=== PATIENT | female | born 1940 | race Caucasian/White ===

== ENCOUNTER 2016-12-14 16:48 | Inpatient (IN) | payer MEDICARE, MEDICAID ==
[~2016-12-14] VITALS: Ht 152.4 cm; Wt 70.8 kg
--- NOTE | ~2016-12-14 | EKG ---
[place], [place] ELECTROCARDIOGRAM REPORT NAME: SILVERIO WHEELER UNIT #: [id number] ROOM: 528 DOCTOR: JOVAN JULIAN MD BIRTHDATE: [birth year] DOS: 12/14/2016 TIME: 1655 hours. FINDINGS: 1. Normal sinus rhythm. 2. Right bundle-branch block. 3. Abnormal electrocardiogram. JOVAN JULIAN MD CM:EKGRPT:ELECTROCARDIOGRAM REPORT [id number] JOVAN JULIAN MD
--- NOTE | ~2016-12-14 | CON ---
[place], [place] REPORT OF CONSULTATION NAME[id number] UNIT #: [id number] ROOM: 528 DOCTOR: ALINA MARTINEZ MD, FACC BIRTHDATE: [birth year] DOS: CARDIOLOGY CONSULTATION IMPRESSION: Syncope, shock. Evaluating for any METAL CUTTER or cardiovascular abnormality. An EEG is pending and no other associated symptoms. A similar episode happened several years ago apparently. No repeat episodes happened since it happened. Came to the Emergency Room and a carotid duplex was done and less than 50% stenosis on the both internal carotid arteries, not critical. The patient came to the Emergency Room. REVIEW OF SYSTEMS: HEENT: Unremarkable CARDIOVASCULAR: Unremarkable CARDIOPULMONARY: Unremarkable GASTROINTESTINAL: Unremarkable NEUROLOGICAL: Unremarkable. EEG is pending. Carotid duplex was less than 50% stenosis, probably. PHYSICAL EXAMINATION: SKIN: Warm, not diaphoretic. VITAL SIGNS: Stable. NECK: Supple. LUNGS: No rales heard. HEART: S1, S2. No gallops. ABDOMEN: Soft. Color is good. EXTREMITIES: No cyanosis. NEUROLOGIC: No focal neurological deficit noted. A CT scan of the head done on admission, small vessel changes with volume loss, otherwise no acute changes noted. Chest x-ray was unremarkable. No acute changes. DIAGNOSIS: Syncope. Workup is in progress and they may for his EEG. Thank you very much for asking me to see this patient. I will review the ____. [place], [place] REPORT OF CONSULTATION NAME: [facility] WHEEL[id number] UNIT #: [id number] ROOM: 528 DOCTOR: ALINA MARTINEZ MD, FACC BIRTHDATE: [birth year] ALINA MARTINEZ MD CM:CONSTR:REPORT OF CONSULTATION 0942 12/16/16 0203 interface
[2016-12-14 16:53] VITALS: BP 125/72
[2016-12-14 17:22] LABS: BASO % 0.4 % (0.0-1.0); EOS # 0.1 10*3/uL (0.0-0.4); EOS % 2.4 % (1.0-4.0); HEMATOCRIT 40.6 % (37.0-47.0); HEMOGLOBIN 13.8 g/dl (12.0-16.0); LYMPH # 1.7 10*3/uL (1.3-4.4); MEAN CELL VOLUME 86.9 fl (81.0-99.0); MEAN CORPUSCULAR HGB 29.6 pg (27.0-31.0); MEAN PLATELET VOLUME 12.5 fl (9.6-12.3); MONO # 0.5 10*3/uL (0.1-1.0); MONO % 9.5 % (3.0-9.0); NEUT # 2.6 10*3/uL (2.3-7.9); NEUT % 53.5 % (47.0-73.0); PLATELET COUNT AUTOMATED 205 10*3/uL (130-400); RED BLOOD COUNT 4.67 10*6/uL (4.10-5.10); RED CELL DISTRI WIDTH 12.6 % (0-14.5); WHITE BLOOD COUNT 4.9 10*3/uL (4.8-10.8)
[2016-12-14 17:31] LABS: PROTHROMBIN TIME 10.5 SECONDS (9.0-12.4)
[2016-12-14 17:33] VITALS: BP 130/77
[2016-12-14 17:41] LABS: ALBUMIN 3.6 gm/dl (3.1-4.5); ALKALINE PHOSPHATASE 79 U/L (45-117); BILIRUBIN, TOTAL 0.4 mg/dl (0.2-1.0); BUN 19 mg/dl (7-24); CARBON DIOXIDE 28 mmol/L (21-32); CHLORIDE 106 mmol/L (98-107); CPK 123 U/L (26-192); EST GLOM FILT AFRICAN AMERICAN > 60 ml/min; GLUCOSE 107 mg/dL (65-99); POTASSIUM 4.1 mmol/L (3.5-5.1); SGOT/AST 20 IU/L (3-35); SGPT/ALT 22 U/L (12-78); SODIUM 144 mmol/L (136-145); TOTAL PROTEIN 6.8 gm/dL (6.4-8.2)
[2016-12-14 17:43] LABS: CKMB 1.3 ng/ml (0.5-3.6)
[2016-12-14 17:45] LABS: TROPONIN I < 0.015 ng/ml (<0.045)
[2016-12-14 19:15] LABS: BILIRUBIN NEGATIVE (NEGATIVE); BLOOD NEGATIVE (NEGATIVE); CLARITY SL CLOUDY (CLEAR); COLOR YELLOW (YELLOW); GLUCOSE NEGATIVE (NEGATIVE); KETONE TRACE (NEGATIVE); LEUKO ESTERASE TRACE (NEGATIVE); NITRITE NEGATIVE (NEGATIVE); PH 6.5 (5.0-9.0); PROTEIN TRACE (NEGATIVE); UROBILINOGEN 0.2 E.U./dl (0.2-1.0)
[2016-12-14 19:28] LABS: BACTERIA 4+; URINE REFLEX COMMENT YES (NO)
[2016-12-14 20:14] VITALS: BP 133/69
[2016-12-14 20:59] VITALS: BP 133/79
[2016-12-14] MEDS ORDERED: NITROSTAT0.4 MG SL (23:42)
[2016-12-14] MEDS ORDERED: LOPRESSOR50 M1 PO (23:43)
[2016-12-14] MEDS ORDERED: OMEPRAZOLE D/R20 MG PO (23:44)
[2016-12-14] MEDS ORDERED: PLAVIX75 M1 PO (23:45)
[2016-12-14] MEDS ORDERED: Imdur SA60 MG PO (23:46)
[2016-12-14] MEDS ORDERED: ZOCOR40 MG PO (23:48)
[2016-12-14] MEDS ORDERED: NIACIN500 M4 PO (23:49)
[2016-12-15] VITALS: BP 134/88
[2016-12-15 00:54] LABS: CKMB 2.5 ng/ml (0.5-3.6)
[2016-12-15 00:55] LABS: CPK 170 U/L (26-192); TROPONIN I < 0.015 ng/ml (<0.045)
[2016-12-15 06:38] LABS: BASO % 0.4 % (0.0-1.0); EOS # 0.1 10*3/uL (0.0-0.4); EOS % 1.3 % (1.0-4.0); HEMATOCRIT 38.3 % (37.0-47.0); LYMPH # 1.3 10*3/uL (1.3-4.4); LYMPH % 27.7 % (27.0-41.0); MEAN CELL VOLUME 87.2 fl (81.0-99.0); MEAN CORPUSCULAR HGB 29.6 pg (27.0-31.0); MEAN CORPUSCULAR HGB CONC 33.9 g/dl (33.0-37.0); MEAN PLATELET VOLUME 12.1 fl (9.6-12.3); MONO # 0.5 10*3/uL (0.1-1.0); MONO % 10.5 % (3.0-9.0); NEUT # 2.7 10*3/uL (2.3-7.9); NEUT % 60.1 % (47.0-73.0); PLATELET COUNT AUTOMATED 204 10*3/uL (130-400); RED BLOOD COUNT 4.39 10*6/uL (4.10-5.10); RED CELL DISTRI WIDTH 12.4 % (0-14.5); WHITE BLOOD COUNT 4.6 10*3/uL (4.8-10.8)
[2016-12-15 06:47] LABS: BUN 16 mg/dl (7-24); CARBON DIOXIDE 28 mmol/L (21-32); CHLORIDE 109 mmol/L (98-107); EST GLOM FILT AFRICAN AMERICAN > 60 ml/min; GLUCOSE 94 mg/dL (65-99); SODIUM 144 mmol/L (136-145)
[2016-12-15 06:50] LABS: CPK 146 U/L (26-192)
[2016-12-15 06:52] LABS: TROPONIN I < 0.015 ng/ml (<0.045)
[2016-12-15 07:05] LABS: PROTHROMBIN TIME 10.7 SECONDS (9.0-12.4)
[2016-12-15 07:28] LABS: HEMOGLOBIN A1c 5.9 % (4.8-5.6)
[2016-12-15 08:00] VITALS: BP 128/68
[2016-12-15 08:36] LABS: FOLIC ACID 16.38 ng/mL (>5.38)
[2016-12-15 12:00] VITALS: BP 140/80
[2016-12-15 16:00] VITALS: BP 160/90
[2016-12-15 20:00] VITALS: BP 157/86
[2016-12-16] VITALS: BP 145/83
[2016-12-16 08:00] VITALS: BP 102/46; BP 130/74; BP 1630/74
[2016-12-16 12:00] VITALS: BP 146/68
[2016-12-16 16:00] VITALS: BP 152/80
[2016-12-16 20:00] VITALS: BP 168/80
[2016-12-17] VITALS: BP 135/61
[2016-12-17 08:00] VITALS: BP 140/72
[2016-12-17] MEDS ORDERED: METOPROLOL TART50 M1 PO (14:45)
== END 2016-12-17 16:50 | disposition home or self-care (01) | DRG 100 ==
LOC: ED 16:48 → 5E 19:23 → EDHOLD 19:23 → 5E 21:22
PROVIDERS: Internal Medicine; Registered Nurse
DX: R56.9 Unspecified convulsions (principal); N17.0 Acute kidney failure with tubular necrosis; R55 Syncope and collapse; I25.10 Atherosclerotic heart disease of native coronary artery without angina pectoris; I50.9 Heart failure, unspecified; I11.0 Hypertensive heart disease with heart failure; K21.9 Gastro-esophageal reflux disease without esophagitis; E78.5 Hyperlipidemia, unspecified; R00.1 Bradycardia, unspecified; R11.2 Nausea with vomiting, unspecified; E86.0 Dehydration; R51 Headache; R42 Dizziness and giddiness; R82.71 Bacteriuria; Z90.710 Acquired absence of both cervix and uterus; Z95.5 Presence of coronary angioplasty implant and graft; Z86.73 Personal history of transient ischemic attack (TIA), and cerebral infarction without residual deficits; Z87.891 Personal history of nicotine dependence; Z82.3 Family history of stroke; Z82.49 Family history of ischemic heart disease and other diseases of the circulatory system

== ENCOUNTER 2017-03-12 18:57 | Emergency (ER) | payer MEDICARE, MEDICAID ==
[~2017-03-12] VITALS: Wt 68.0 kg
[~2017-03-12 18:57] MED LIST: Imdur SA60 MG PO; LOPRESSOR50 M1 PO; METOPROLOL TART50 M1 PO; NIACIN500 M4 PO; NITROSTAT0.4 MG SL; OMEPRAZOLE D/R20 MG PO; PLAVIX75 M1 PO; ZOCOR40 MG PO
[2017-03-12 20:17] VITALS: BP 106/62
[2017-03-12 20:21] LABS: BILIRUBIN NEGATIVE (NEGATIVE); BLOOD NEGATIVE (NEGATIVE); CLARITY SL CLOUDY (CLEAR); COLOR YELLOW (YELLOW); GLUCOSE NEGATIVE (NEGATIVE); KETONE NEGATIVE (NEGATIVE); LEUKO ESTERASE TRACE (NEGATIVE); NITRITE NEGATIVE (NEGATIVE); PROTEIN NEGATIVE (NEGATIVE); SPECIFIC GRAVITY 1.015 (1.005-1.030); UROBILINOGEN 0.2 E.U./dl (0.2-1.0)
[2017-03-12 20:24] LABS: BASO % 0.3 % (0.0-1.0); EOS # 0.2 10*3/uL (0.0-0.4); EOS % 2.5 % (1.0-4.0); HEMATOCRIT 39.7 % (37.0-47.0); LYMPH # 1.7 10*3/uL (1.3-4.4); LYMPH % 25.7 % (27.0-41.0); MEAN CELL VOLUME 88.4 fl (81.0-99.0); MEAN CORPUSCULAR HGB CONC 32.7 g/dl (33.0-37.0); MEAN PLATELET VOLUME 12.7 fl (9.6-12.3); MONO # 0.5 10*3/uL (0.1-1.0); MONO % 7.8 % (3.0-9.0); NEUT # 4.1 10*3/uL (2.3-7.9); NEUT % 63.5 % (47.0-73.0); PLATELET COUNT AUTOMATED 244 10*3/uL (130-400); RED BLOOD COUNT 4.49 10*6/uL (4.10-5.10); WHITE BLOOD COUNT 6.4 10*3/uL (4.8-10.8)
[2017-03-12 20:29] LABS: BACTERIA TRACE; RBC 0-2 rbc/hpf (0-2)
[2017-03-12 20:40] LABS: ALBUMIN 3.2 gm/dl (3.1-4.5); ALKALINE PHOSPHATASE 83 U/L (45-117); BILIRUBIN, TOTAL 0.3 mg/dl (0.2-1.0); BUN 14 mg/dl (7-24); CARBON DIOXIDE 26 mmol/L (21-32); CHLORIDE 109 mmol/L (98-107); EST GLOM FILT AFRICAN AMERICAN > 60 ml/min; GLUCOSE 117 mg/dL (65-99); POTASSIUM 4.2 mmol/L (3.5-5.1); SGOT/AST 23 IU/L (3-35); SGPT/ALT 26 U/L (12-78); SODIUM 142 mmol/L (136-145); TOTAL PROTEIN 6.4 gm/dL (6.4-8.2)
[2017-03-12 20:44] LABS: TROPONIN I < 0.015 ng/ml (<0.045)
== END 2017-03-12 21:07 | disposition home or self-care (01) ==
LOC: ED 18:57
PROVIDERS: Emergency Medicine
DX: R53.1 Weakness (principal); R51 Headache; R11.0 Nausea; I48.91 Unspecified atrial fibrillation; I25.10 Atherosclerotic heart disease of native coronary artery without angina pectoris; I11.0 Hypertensive heart disease with heart failure; I50.9 Heart failure, unspecified; K21.9 Gastro-esophageal reflux disease without esophagitis; E78.5 Hyperlipidemia, unspecified; Z87.891 Personal history of nicotine dependence; F03.90 Unspecified dementia, unspecified severity, without behavioral disturbance, psychotic disturbance, mood disturbance, and anxiety; Z79.899 Other long term (current) drug therapy; Z86.73 Personal history of transient ischemic attack (TIA), and cerebral infarction without residual deficits

== ENCOUNTER → 2017-07-11 | Outpatient (CLI) | payer MEDICARE, MEDICAID ==
[2017-07-11 10:32] LABS: BASO % 0.8 % (0.0-1.0); EOS # 0.2 10*3/uL (0.0-0.4); EOS % 3.8 % (1.0-4.0); HEMATOCRIT 40.9 % (37.0-47.0); HEMOGLOBIN 13.7 g/dl (12.0-16.0); LYMPH % 24.9 % (27.0-41.0); MEAN CORPUSCULAR HGB 29.5 pg (27.0-31.0); MEAN CORPUSCULAR HGB CONC 33.5 g/dl (33.0-37.0); MEAN PLATELET VOLUME 13.1 fl (9.6-12.3); MONO # 0.5 10*3/uL (0.1-1.0); MONO % 12.8 % (3.0-9.0); NEUT # 2.3 10*3/uL (2.3-7.9); NEUT % 57.4 % (47.0-73.0); PLATELET COUNT AUTOMATED 187 10*3/uL (130-400); RED BLOOD COUNT 4.65 10*6/uL (4.10-5.10); RED CELL DISTRI WIDTH 15.1 % (0-14.5)
[2017-07-11 11:02] LABS: ALBUMIN 3.4 gm/dl (3.1-4.5); ALKALINE PHOSPHATASE 85 U/L (45-117); BUN 11 mg/dl (7-24); CHLORIDE 107 mmol/L (98-107); CREATININE 0.98 mg/dL (0.55-1.02); FREE T4 1.33 ng/dl (0.76-1.46); POTASSIUM 4.3 mmol/L (3.5-5.1); SGOT/AST 18 IU/L (3-35); SGPT/ALT 24 U/L (12-78); SODIUM 143 mmol/L (136-145)
== END | disposition home or self-care (01) ==
LOC: LAB 09:18 → US 09:30
PROVIDERS: Internal Medicine
DX: M79.604 Pain in right leg (principal); M79.671 Pain in right foot; I73.9 Peripheral vascular disease, unspecified; I10 Essential (primary) hypertension; I48.91 Unspecified atrial fibrillation; R61 Generalized hyperhidrosis; M79.89 Other specified soft tissue disorders; Z87.891 Personal history of nicotine dependence

== ENCOUNTER 2017-10-08 19:22 | Inpatient (IN) | payer MEDICARE ==
[~2017-10-08] VITALS: Ht 167.6 cm; Wt 65.1 kg
--- NOTE | ~2017-10-08 | PR ---
[place], [place] PROGRESS NOTE NAME: SILVERIO WHEELER UNIT #: [id number] ROOM: 412 DOCTOR: GURINDER JEFFREY MD BIRTHDATE: [birth year] DOS: 10/10/2017 The patient was seen because of leukopenia. A full consult to follow. We will be reviewing peripheral smears. Leukopenia could be secondary to bone marrow suppression. Depending upon the workup, further intervention. GURINDER JEFFREY MD CM:PNTRANS [phone] GURINDER JEFFREY MD 10/11/17 0114 interface
--- NOTE | ~2017-10-08 | PR ---
[place], [place] PROGRESS NOTE NAME: SILVERIO WHEELER UNIT #: [id number] ROOM: 412 DOCTOR: GURINDER JEFFREY MD BIRTHDATE: [birth year] DOS: 10/11/2017 SUBJECTIVE: The patient is doing better. REVIEW OF SYSTEMS HEENT: No trouble swallowing. No double vision. No loss of vision. No pain. ENT AND RESPIRATORY: No wheeze. No change in voice. No cough. No shortness of breath. No coughing up blood. No epistaxis. CARDIOLOGIC: No chest pain. No dizziness. No irregular heartbeat. No leg edema. No palpitations. No shortness of breath. HEMATOLOGIC AND LYMPH: No past transfusion. No fatigue. No loss of appetite. No easy bruising. GASTROENEROLOGIC: No change in bowel habits. No vomiting blood. No abdominal cramping. No nausea. No vomiting. No diarrhea. No constipation. No blood in stool. FEMALE REPRODUCTIVE: No dyspareunia. No pelvic pain. MUSCULOSKELETAL: No back pain. No muscle pain or weakness. No tingling/numbness. UROLOGIC: No pain with urination. No difficulty urinating. No frequent urination. NEUROLOGIC: No burning pain in feet. No trouble with coordination. No loss of consciousness. No headache. No tingling/numbness. No memory loss. PHYSICAL EXAMINATION GENERAL: She is a pleasant woman, in no apparent distress. VITAL SIGNS: Stable. HEENT: Normocephalic, atraumatic NECK AND THYROID: Supple. No JVD, thyromegaly, or lymphadenopathy. HEART: Normal S1, S2. Regular rate and rhythm. LUNGS: Clear to auscultation and percussion. ABDOMEN: Soft. Nontender, nondistended. Bowel sounds present. EXTREMITIES: Normal ROM. No clubbing. No edema. LABORATORY DATA: White count of 3.5, hemoglobin 12.2, hematocrit 37.9, MCV 87.1, platelet count of 202,000. ASSESSMENT: 1. Neutropenia, which is resolving. 2. Diarrhea. PLAN: Her counts are getting better. We will just keep a close watch at this time. If the count drops, then intervention, otherwise close followup discussed. [place], [place] PROGRESS NOTE NAME: SILVERIO WHEELER UNIT #: [id number] ROOM: [facility] DOCTOR: GURINDER JEFFREY MD BIRTHDATE: [birth year] GURINDER JEFFREY MD CM:PNTRANS [phone] GURINDER JEFFREY MD 10/12/17 0242 interface
--- NOTE | ~2017-10-08 | CON ---
[place], [place] REPORT OF CONSULTATION NAME: [facility]ILVERIO WHEELER [id number] UNIT #: [id number] ROOM: 412 DOCTOR: MICHELLE LEDESMA [facility],ALINA BIRTHDATE: [birth year] DOS: 10/11/2017 CARDIOLOGY CONSULTATION HISTORY OF PRESENT ILLNESS: The patient is a 77-year-old female who came to the Emergency Room with severe bradycardia and lightheadedness and dizziness. No syncope. The patient found to be bradycardic after adjusting the medication. Apparently, she is taking more medication than she is supposed to and the beta blockers have been reduced and no significant symptoms from bradycardia and heart rate is improved, blood pressure stabilized and afebrile. No evidence of acute coronary syndrome. EKG, sinus rhythm, no significant dysrhythmias noted. PHYSICAL EXAMINATION VITAL SIGNS: Stable. Blood pressure 128/84. heart rate is 60 now, afebrile, respiratory rate is 20. HEENT: Unremarkable. LUNGS: No rales. HEART: S1, S2 regular. No gallops. ABDOMEN: Soft. SKIN: Color is good, not diaphoretic. No cyanosis. NECK: Supple. NEUROLOGIC: No focal neurological deficit. RECTAL, GENITAL, and BREASTS: Deferred, unrelated. LABORATORY DATA: Hemoglobin is 12.6. Electrolytes are normal. GFR is normal. Blood cultures were done and consideration was given for viral syndrome, leukopenia. IMPRESSION AND PLAN: Bradycardia, iatrogenic and stabilized with adjusting the medications. Heart rate and blood pressure is stable. No acute coronary syndrome. It was explained to the patient. We will continue to follow the patient and manage the cardiovascular status and clinically hemodynamically she appears to be stable with the current medication regimen. Thank you very much for asking me to see the patient. I will follow the patient. ALINA MARTINEZ MD CM:CONSTR:REPORT OF CONSULTATION 38 10/12/17 0209 interface BHAVYA JASSO MD
[2017-10-08 19:35] VITALS: BP 126/91
[2017-10-08 20:19] LABS: BASO % 0.4 % (0.0-1.0); EOS % 0.7 % (1.0-4.0); HEMATOCRIT 43.1 % (37.0-47.0); HEMOGLOBIN 14.1 g/dl (12.0-16.0); LYMPH # 0.9 10*3/uL (1.3-4.4); LYMPH % 33.8 % (27.0-41.0); MEAN CELL VOLUME 85.9 fl (81.0-99.0); MEAN CORPUSCULAR HGB 28.1 pg (27.0-31.0); MEAN CORPUSCULAR HGB CONC 32.7 g/dl (33.0-37.0); MEAN PLATELET VOLUME 12.1 fl (9.6-12.3); MONO # 0.4 10*3/uL (0.1-1.0); MONO % 12.7 % (3.0-9.0); NEUT # 1.4 10*3/uL (2.3-7.9); NEUT % 52.4 % (47.0-73.0); PLATELET COUNT AUTOMATED 227 10*3/uL (130-400); RED BLOOD COUNT 5.02 10*6/uL (4.10-5.10); RED CELL DISTRI WIDTH 13.1 % (0-14.5); WHITE BLOOD COUNT 2.8 10*3/uL (4.8-10.8)
[2017-10-08 20:47] LABS: ALBUMIN 3.3 gm/dl (3.1-4.5); ALKALINE PHOSPHATASE 104 U/L (45-117); BUN 18 mg/dl (7-24); CHLORIDE 108 mmol/L (98-107); POTASSIUM 3.5 mmol/L (3.5-5.1); SGOT/AST 39 IU/L (3-35); SGPT/ALT 49 U/L (12-78); SODIUM 140 mmol/L (136-145); TOTAL PROTEIN 6.8 gm/dL (6.4-8.2)
[2017-10-08 20:51] LABS: TROPONIN I < 0.015 ng/ml (<0.045)
[2017-10-08 21:52] LABS: BILIRUBIN 1+ (NEGATIVE); BLOOD NEGATIVE (NEGATIVE); CLARITY CLOUDY (CLEAR); COLOR YELLOW (YELLOW); GLUCOSE NEGATIVE (NEGATIVE); KETONE TRACE (NEGATIVE); LEUKO ESTERASE NEGATIVE (NEGATIVE); NITRITE NEGATIVE (NEGATIVE); PH 5.5 (5.0-9.0); SPECIFIC GRAVITY >= 1.030 (1.005-1.030)
[2017-10-08 22:03] LABS: BACTERIA 1+; EPITHELIAL CELLS TNTC
[2017-10-08 22:59] VITALS: BP 130/63
[2017-10-09] VITALS (7 sets, daily range): BP systolic 116–143; BP diastolic 54–87
[2017-10-09] MEDS ORDERED: ELIQUIS5 M1 PO (10:21)
[2017-10-09] MEDS ORDERED: AMIODARONE HYD200 MG PO (10:22)
[2017-10-09] MEDS ORDERED: CARDIZEM30 MG PO (10:22)
[2017-10-09] MEDS ORDERED: LOPRESSOR100 M1 PO (10:22)
[2017-10-09] MEDS ORDERED: BENADRYL ALLERG25 M5 PO ×2 (10:23)
[2017-10-10] VITALS: BP 137/69
[2017-10-10 07:16] LABS: BASO % 0.4 % (0.0-1.0); EOS # 0.1 10*3/uL (0.0-0.4); EOS % 4.5 % (1.0-4.0); HEMATOCRIT 37.8 % (37.0-47.0); HEMOGLOBIN 12.4 g/dl (12.0-16.0); LYMPH # 0.6 10*3/uL (1.3-4.4); LYMPH % 25.6 % (27.0-41.0); MEAN CELL VOLUME 86.7 fl (81.0-99.0); MEAN CORPUSCULAR HGB 28.4 pg (27.0-31.0); MEAN CORPUSCULAR HGB CONC 32.8 g/dl (33.0-37.0); MEAN PLATELET VOLUME 12.2 fl (9.6-12.3); MONO # 0.4 10*3/uL (0.1-1.0); MONO % 15.7 % (3.0-9.0); NEUT # 1.3 10*3/uL (2.3-7.9); NEUT % 53.8 % (47.0-73.0); PLATELET COUNT AUTOMATED 196 10*3/uL (130-400); RED BLOOD COUNT 4.36 10*6/uL (4.10-5.10); RED CELL DISTRI WIDTH 13.1 % (0-14.5); WHITE BLOOD COUNT 2.4 10*3/uL (4.8-10.8)
[2017-10-10 07:29] LABS: BUN 10 mg/dl (7-24); CHLORIDE 110 mmol/L (98-107); CREATININE 0.86 mg/dL (0.55-1.02); POTASSIUM 4.1 mmol/L (3.5-5.1); SODIUM 142 mmol/L (136-145)
[2017-10-10 08:00] VITALS: BP 149/67
[2017-10-10 12:00] VITALS: BP 144/66
[2017-10-10 16:00] VITALS: BP 150/71
[2017-10-10 20:00] VITALS: BP 115/77
[2017-10-10 22:25] VITALS: BP 110/60
[2017-10-11] VITALS: BP 124/57
[2017-10-11 04:00] VITALS: BP 116/66
[2017-10-11 06:17] LABS: BASO % 0.3 % (0.0-1.0); EOS # 0.1 10*3/uL (0.0-0.4); EOS % 2.6 % (1.0-4.0); HEMATOCRIT 37.9 % (37.0-47.0); HEMOGLOBIN 12.6 g/dl (12.0-16.0); LYMPH # 0.9 10*3/uL (1.3-4.4); LYMPH % 27.2 % (27.0-41.0); MEAN CELL VOLUME 87.1 fl (81.0-99.0); MEAN CORPUSCULAR HGB CONC 33.2 g/dl (33.0-37.0); MEAN PLATELET VOLUME 12.9 fl (9.6-12.3); MONO # 0.6 10*3/uL (0.1-1.0); MONO % 18.2 % (3.0-9.0); NEUT # 1.8 10*3/uL (2.3-7.9); NEUT % 51.4 % (47.0-73.0); PLATELET COUNT AUTOMATED 202 10*3/uL (130-400); RED BLOOD COUNT 4.35 10*6/uL (4.10-5.10); RED CELL DISTRI WIDTH 13.2 % (0-14.5); WHITE BLOOD COUNT 3.5 10*3/uL (4.8-10.8)
[2017-10-11 06:34] LABS: ALBUMIN 2.7 gm/dl (3.1-4.5); BUN 10 mg/dl (7-24); CHLORIDE 110 mmol/L (98-107); SODIUM 140 mmol/L (136-145)
[2017-10-11 06:39] LABS: ALKALINE PHOSPHATASE 77 U/L (45-117); CREATININE 0.83 mg/dL (0.55-1.02); SGOT/AST 42 IU/L (3-35); SGPT/ALT 45 U/L (12-78); TOTAL PROTEIN 5.7 gm/dL (6.4-8.2)
[2017-10-11 08:00] VITALS: BP 128/84
[2017-10-11 12:00] VITALS: BP 129/65
[2017-10-11 16:00] VITALS: BP 139/65
[2017-10-11 20:13] VITALS: BP 138/59
[2017-10-12] VITALS: BP 117/58
[2017-10-12 06:40] LABS: BASO % 0.7 % (0.0-1.0); EOS # 0.1 10*3/uL (0.0-0.4); EOS % 4.7 % (1.0-4.0); HEMATOCRIT 36.6 % (37.0-47.0); HEMOGLOBIN 12.1 g/dl (12.0-16.0); LYMPH # 0.8 10*3/uL (1.3-4.4); LYMPH % 25.5 % (27.0-41.0); MEAN CELL VOLUME 87.6 fl (81.0-99.0); MEAN CORPUSCULAR HGB 28.9 pg (27.0-31.0); MEAN CORPUSCULAR HGB CONC 33.1 g/dl (33.0-37.0); MEAN PLATELET VOLUME 12.7 fl (9.6-12.3); MONO # 0.5 10*3/uL (0.1-1.0); MONO % 16.1 % (3.0-9.0); NEUT # 1.6 10*3/uL (2.3-7.9); NEUT % 52.7 % (47.0-73.0); PLATELET COUNT AUTOMATED 209 10*3/uL (130-400); RED BLOOD COUNT 4.18 10*6/uL (4.10-5.10); RED CELL DISTRI WIDTH 13.3 % (0-14.5)
[2017-10-12 07:04] LABS: CHLORIDE 110 mmol/L (98-107); POTASSIUM 3.8 mmol/L (3.5-5.1); SODIUM 142 mmol/L (136-145)
[2017-10-12 07:20] LABS: ALBUMIN 2.7 gm/dl (3.1-4.5); ALKALINE PHOSPHATASE 80 U/L (45-117); BUN 7 mg/dl (7-24); CREATININE 0.88 mg/dL (0.55-1.02); SGOT/AST 117 IU/L (3-35); SGPT/ALT 75 U/L (12-78); TOTAL PROTEIN 5.4 gm/dL (6.4-8.2)
[2017-10-12 08:00] VITALS: BP 144/77
[2017-10-12] MEDS ORDERED: FLAGYL500 MG PO (10:08)
[2017-10-12 12:00] VITALS: BP 152/73
== END 2017-10-12 13:36 | disposition home or self-care (01) | DRG 951 ==
LOC: ED 19:22 → EDHOLD 23:18 → 4E 23:18
PROVIDERS: Internal Medicine; Internal Medicine Hematology & Oncology; Physician Assistant; Student in an Organized Health Care Education/Training Program
DX: Z68.22 Body mass index [BMI] 22.0-22.9, adult (principal); N17.0 Acute kidney failure with tubular necrosis; E87.2 Acidosis; E44.0 Moderate protein-calorie malnutrition; R65.10 Systemic inflammatory response syndrome (SIRS) of non-infectious origin without acute organ dysfunction; I11.0 Hypertensive heart disease with heart failure; E87.8 Other disorders of electrolyte and fluid balance, not elsewhere classified; E83.51 Hypocalcemia; I50.9 Heart failure, unspecified; B34.9 Viral infection, unspecified; I48.0 Paroxysmal atrial fibrillation; R73.9 Hyperglycemia, unspecified; R74.0 Nonspecific elevation of levels of transaminase and lactic acid dehydrogenase [LDH]; F03.90 Unspecified dementia, unspecified severity, without behavioral disturbance, psychotic disturbance, mood disturbance, and anxiety; I25.10 Atherosclerotic heart disease of native coronary artery without angina pectoris; K21.9 Gastro-esophageal reflux disease without esophagitis; E78.5 Hyperlipidemia, unspecified; D75.89 Other specified diseases of blood and blood-forming organs; R00.1 Bradycardia, unspecified; T46.1X5A Adverse effect of calcium-channel blockers, initial encounter; Z79.899 Other long term (current) drug therapy; Z95.5 Presence of coronary angioplasty implant and graft; Z90.710 Acquired absence of both cervix and uterus; Z87.891 Personal history of nicotine dependence; Z82.3 Family history of stroke; Z82.49 Family history of ischemic heart disease and other diseases of the circulatory system; Z86.73 Personal history of transient ischemic attack (TIA), and cerebral infarction without residual deficits; Y92.89 Other specified places as the place of occurrence of the external cause

== ENCOUNTER → 2017-11-17 | Outpatient (CLI) | payer MEDICARE ==
[~2017-11-17] MED LIST changes: +AMIODARONE HYD200 MG PO; +BENADRYL ALLERG25 M5 PO; +CARDIZEM30 MG PO; +ELIQUIS5 M1 PO; +FLAGYL500 MG PO; +LOPRESSOR100 M1 PO
[2017-11-17 09:42] LABS: BASO % 1.2 % (0.0-1.0); EOS # 0.2 10*3/uL (0.0-0.4); EOS % 5.1 % (1.0-4.0); HEMATOCRIT 43.6 % (37.0-47.0); HEMOGLOBIN 14.1 g/dl (12.0-16.0); LYMPH % 28.7 % (27.0-41.0); MEAN CELL VOLUME 85.7 fl (81.0-99.0); MEAN CORPUSCULAR HGB 27.7 pg (27.0-31.0); MEAN CORPUSCULAR HGB CONC 32.3 g/dl (33.0-37.0); MEAN PLATELET VOLUME 12.1 fl (9.6-12.3); MONO # 0.5 10*3/uL (0.1-1.0); MONO % 16.3 % (3.0-9.0); NEUT # 1.6 10*3/uL (2.3-7.9); NEUT % 48.7 % (47.0-73.0); PLATELET COUNT AUTOMATED 254 10*3/uL (130-400); RED BLOOD COUNT 5.09 10*6/uL (4.10-5.10); RED CELL DISTRI WIDTH 13.7 % (0-14.5); WHITE BLOOD COUNT 3.3 10*3/uL (4.8-10.8)
== END | disposition home or self-care (01) ==
LOC: LAB 09:03
PROVIDERS: Internal Medicine Hematology & Oncology
DX: D70.9 Neutropenia, unspecified (principal)

== ENCOUNTER 2018-08-11 08:58 | Emergency (ER) | payer MEDICARE ==
[~2018-08-11] VITALS: Ht 162.5 cm; Wt 66.7 kg
--- NOTE | ~2018-08-11 | EKG ---
[place], [place] ELECTROCARDIOGRAM REPORT NAME: SILVERIO WHEELER UNIT #: [id number] ROOM: DOCTOR: EPIPHANY DRAFT REPORT BIRTHDATE: [birth year] [facility] Test Date: 2018-08-11 Test Time: 09:34:18 Pat Name: SILVERIO WHEELER Department: ER Room: D/C Gender: F Casing Fluid Tender: : 1940 Requested By: ONDINA BEDOLLA Order Number: [id number] Reading MD: Lamine Chaudhry MD Measurements Intervals [place] Rate: 70 P: 7 IA: 157 QRS: -11 QRSD: 141 T: 17 QT: 401 QTc: 433 Interpretive Statements Sinus rhythm Right bundle branch block Electronically Signed On 08-12-2018 14:42:07 PST by Lamine Chaudhry MD CM:EKGRPT:ELECTROCARDIOGRAM REPORT [id number] ONDINA BEDOLLA EPIPHANY DRAFT REPORT ONDINA BEDOLLA
[2018-08-11 09:02] VITALS: BP 123/54
[2018-08-11 09:35] LABS: BASO % 0.5 % (0.0-1.0); EOS # 0.1 10*3/uL (0.0-0.4); EOS % 1.8 % (1.0-4.0); HEMATOCRIT 43.8 % (37.0-47.0); HEMOGLOBIN 14.7 g/dl (12.0-16.0); LYMPH % 22.4 % (27.0-41.0); MEAN CELL VOLUME 89.2 fl (81.0-99.0); MEAN CORPUSCULAR HGB 29.9 pg (27.0-31.0); MEAN CORPUSCULAR HGB CONC 33.6 g/dl (33.0-37.0); MEAN PLATELET VOLUME 11.6 fl (9.6-12.3); MONO # 0.4 10*3/uL (0.1-1.0); MONO % 9.2 % (3.0-9.0); NEUT # 2.9 10*3/uL (2.3-7.9); NEUT % 65.9 % (47.0-73.0); PLATELET COUNT AUTOMATED 191 10*3/uL (130-400); RED BLOOD COUNT 4.91 10*6/uL (4.10-5.10); RED CELL DISTRI WIDTH 12.9 % (0-14.5); WHITE BLOOD COUNT 4.3 10*3/uL (4.8-10.8)
[2018-08-11 09:52] LABS: ALBUMIN 3.6 gm/dl (3.1-4.5); ALKALINE PHOSPHATASE 82 U/L (45-117); BUN 15 mg/dl (7-24); CHLORIDE 109 mmol/L (98-107); CREATININE 1.03 mg/dL (0.55-1.02); POTASSIUM 4.2 mmol/L (3.5-5.1); SGOT/AST 28 IU/L (3-35); SGPT/ALT 37 U/L (12-78); SODIUM 142 mmol/L (136-145); TOTAL PROTEIN 7.2 gm/dL (6.4-8.2)
[2018-08-11 09:56] LABS: TROPONIN I < 0.015 ng/ml (<0.045)
[2018-08-11] MEDS ORDERED: PREDNISONE10 MG PO (10:12)
[2018-08-11] MEDS ORDERED: PROAIR HFA8.5 GM INH (10:12)
[2018-08-11] MEDS ORDERED: VIBRAMYCIN100 MG PO (10:12)
== END 2018-08-11 10:16 | disposition home or self-care (01) ==
LOC: ED 08:58
PROVIDERS: Nurse Practitioner Family
DX: J20.9 Acute bronchitis, unspecified (principal); I11.0 Hypertensive heart disease with heart failure; I50.9 Heart failure, unspecified; I48.91 Unspecified atrial fibrillation; I25.10 Atherosclerotic heart disease of native coronary artery without angina pectoris; K21.9 Gastro-esophageal reflux disease without esophagitis; E78.5 Hyperlipidemia, unspecified; Z87.891 Personal history of nicotine dependence; Z86.73 Personal history of transient ischemic attack (TIA), and cerebral infarction without residual deficits; Z79.899 Other long term (current) drug therapy

== ENCOUNTER 2018-10-11 17:01 | Emergency (ER) | payer MEDICARE ==
[~2018-10-11] VITALS: Ht 162.5 cm; Wt 61.7 kg
[~2018-10-11 17:01] MED LIST changes: +PREDNISONE10 MG PO; +PROAIR HFA8.5 GM INH; +VIBRAMYCIN100 MG PO
[2018-10-11 17:03] VITALS: BP 130/56
[2018-10-11] MEDS ORDERED: Tobrex Ophth S2.5 ML OPH (18:50)
== END 2018-10-11 18:43 | disposition home or self-care (01) ==
LOC: ED 17:01
DX: H10.89 Other conjunctivitis (principal); I25.10 Atherosclerotic heart disease of native coronary artery without angina pectoris; K21.9 Gastro-esophageal reflux disease without esophagitis; I10 Essential (primary) hypertension; E78.5 Hyperlipidemia, unspecified; I48.91 Unspecified atrial fibrillation; Z87.891 Personal history of nicotine dependence; Z95.5 Presence of coronary angioplasty implant and graft; Z90.710 Acquired absence of both cervix and uterus; Z86.73 Personal history of transient ischemic attack (TIA), and cerebral infarction without residual deficits; Z79.899 Other long term (current) drug therapy